=== PATIENT | female | born 1975 | race Caucasian/White ===

== ENCOUNTER 2024-09-05 12:37 | Emergency (ER) | payer BC ==
[~2024-09-05] VITALS: Ht 157.5 cm; Wt 74.0 kg
[2024-09-05] MEDS ORDERED: CYCL-1 PO (15:05)
[2024-09-05] MEDS ORDERED: PRED20TA PO (15:05)
[2024-09-05] MEDS ORDERED: LIDO700A32 TOP (15:05)
[2024-09-05] MEDS: ketorolac trometh 30MG/ML vial 30 MG/ML VIAL IM ONE (15:11)
[2024-09-05] MEDS: cyclobenzaprine 10mg tablet PO ONE (15:11)
[2024-09-05] MEDS: dexamethasone sod phosphate 10mg/ml inj IM STA (15:11)
[2024-09-05 15:23] VITALS: BP 126/86; PULSE 80; RESP 16; TEMP 98.5; O2SAT 98
[2024-09-06] MEDS ORDERED: LIDOcaine 5% patch TP SCH (08:00)
[2024-09-06] MEDS ORDERED: bacitracin 15gm ointment TP ONE (11:39)
[2024-09-06] MEDS ORDERED: BUPIVAcaine/PF 2.5mg/ml (0.25%) 10ml vial ONE (11:39)
== END 2024-09-05 15:24 | disposition home or self-care (01) ==
LOC: ER 12:38
DX: M54.59 Other low back pain (principal); Z88.0 Allergy status to penicillin
CPT/HCPCS: 96372; 99284; J1100; J1885; J3490